=== PATIENT | female | born 1975 | race Hispanic/Latino ===

== ENCOUNTER 2022-03-23 07:41 | Emergency (ER) | payer OTHER ==
[~2022-03-23] VITALS: Ht 172.7 cm; Wt 72.6 kg
[2022-03-23 07:49] VITALS: TEMP 98.5
[2022-03-23 08:28] LABS: PLATELET COUNT 335 K/uL (152-353)
[2022-03-23 08:32] LABS: POTASSIUM 3.3 mmol/L (3.6-5.2)
[2022-03-23 11:27] VITALS: BP 132/81
== END 2022-03-23 11:28 | disposition home or self-care (01) ==
LOC: ED 07:41
PROVIDERS: Emergency Medicine
DX: F41.8 Other specified anxiety disorders (principal); E87.6 Hypokalemia; R03.0 Elevated blood-pressure reading, without diagnosis of hypertension; Z20.822 Contact with and (suspected) exposure to COVID-19
CPT/HCPCS: 80053; 80307; 80320; 81002; 83690; 84443; 84484; 85027; 87502; 87635; 93005; 99283; U0003